=== PATIENT | male | born 1995 | race African-American/Black ===

== ENCOUNTER 2016-04-14 18:39 | Emergency (ER) | payer MEDICAID ==
[~2016-04-14] VITALS: Ht 182.9 cm; Wt 77.1 kg
[2016-04-14 18:40] VITALS: BP 127/87
[2016-04-14 20:15] VITALS: BP 120/79
[2016-04-14 20:48] VITALS: BP 127/87
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
== END 2016-04-14 20:48 | disposition home or self-care (01) ==
LOC: EDBD 18:39 → EMR 19:21
DX: Z04.8 Encounter for examination and observation for other specified reasons (principal); F84.0 Autistic disorder
CPT/HCPCS: 99283